=== PATIENT | female | born 1945 | race Caucasian/White ===

== ENCOUNTER 2016-11-12 15:23 | Emergency (ER) | payer MEDICARE, OTHER ==
[~2016-11-12 15:23] MED LIST: AMLO10 PO; ATOR20TA42 PO; GLIP10TA13 PO; GLUCTAB PO; KPHOS250 PO; LANTINJ SC; LEVA250T14 PO; LEVA500T PO; LISI-366 PO; SPIR25TA PO
[2016-11-12 15:25] VITALS: BP 199/100; PULSE 90; RESP 13; TEMP 97.6; O2SAT 95
--- NOTE | 2016-11-12 17:19 | PD ---
HPI Chief Complaint: Musculoskeletal Complaint Time Seen by Provider: 16:20 Travel History International Travel<30 days: No Contact w/Intl Traveler<30days: No Traveled to known affect area: No History of Present Illness HPI 71-year-old female presents emergency department for evaluation of right ankle pain. Patient reports she's history distress fracture in the fibula diagnosed last year. Over the last 24 hours she has had increasing pain in the ankle worse with weightbearing. Similar to the pain with her previous stress fracture. She denies numbness/tingling/weakness a 70. She has full range of motion of the ankle. Pain is constant, nonradiating, throbbing. Severity 4/10. PFSH Past Medical History Blood Disorders: No Cancer: No Cardiovascular Problems: Yes High Cholesterol: Yes Diabetes: Yes Endocrine: Yes Genitourinary: Yes (PROTEIN IN URINE.) Hypertension: Yes Immune Disorder: No Musculoskeletal: No Neurologic: No Psychiatric: No Reproductive: No Respiratory: No Menopausal: Yes Tubal Ligation: Yes Past Surgical History Abdominal Surgery: Yes (GALL BLADDER) Body Medical Devices: SCREWS IN LEFT ANKLE Cholecystectomy: Yes Eye Surgery: Yes (CATARACT) Gynecologic Surgery: Yes (TUBAL LIGATION) Social History Alcohol Use: No Tobacco Use: No Substance Use: No Allergies-Medications (Allergen,Severity, Reaction): Coded Allergies: morphine (Verified Allergy, Severe, VOMITING, 11/12/16) Reported Meds & Prescriptions Reported Meds & Active Scripts Active Reported Levaquin (Levofloxacin) 250 Mg Tab 250 Mg PO DAILY 9 Days Levaquin 500 Mg Tab (Levofloxacin) 500 Mg Tab 500 Mg PO DAILY 1 Days Kphos Neutral 250 Mg Tab (Potassium Phos/Sodium Phos) 250 Mg Tab 250 Mg PO Q8 2 Days Lantus For Opticlik (Insulin Glargine) Inj 10 Units SC DAILY@1600 Lisinopril 40 Mg Tab 40 Mg PO DAILY Glipizide Er (Glipizide) 10 Mg Tab 10 Mg PO BID Spironolactone 25 Mg Tab 25 Mg PO DAILY START ON 02/06/13 Norvasc (Amlodipine Besylate) 10 Mg Tab 10 Mg PO HS Lipitor (Atorvastatin Calcium) 20 Mg Tab 20 Mg PO DAILY Glucophage (Metformin HCl) 500 Mg Tab 1,500 Mg PO DIRECTED HOLD METFORMIN UNTIL CLEARED BY YOUR PCP Metformin Hcl (Metformin HCl) 500 Mg Tab 1,000 Mg PO DAILY Review of Systems Except as stated in HPI: all other systems reviewed are Neg Physical Exam Narrative GENERAL: Well-nourished, well-developed patient. SKIN: Focused skin assessment warm/dry. HEAD: Normocephalic. CARDIOVASCULAR: Regular rate and rhythm without murmurs, gallops, clicks or rubs. RESPIRATORY: Clear to auscultation. Breath sounds equal bilaterally. No wheezes , rales, or rhonchi heard. MUSCULOSKELETAL: No cyanosis. Right lower extremity: Notable swelling and mild tenderness to the anterior lateral aspect of the ankle. The joint is stable. Full range of motion. 2+ distal pulses. Normal sensation. Brisk cap refill. BACK: Nontender without obvious deformity. No CVA tenderness. Data Data Last Documented VS Vital Signs Date Time Temp Pulse Resp B/P (MAP) Pulse Ox O2 Delivery O2 Flow Rate FiO2 11/12/16 15:25 97.6 90 13 199/100 (133) 95 Orders Orders Ankle, Complete ([id number]) (11/12/16 ) [facility] Medical Decision Making Medical Screen Exam Complete: Yes Emergency Medical Condition: Yes Differential Diagnosis Ankle sprain versus ankle fracture versus arthralgia Narrative Course 71-year-old female with chief complaint of right ankle pain. History of wrist fracture in the right fibula diagnosed last year. Patient denies any acute injury. Reports pain is similar to previous strokes fracture. Extremities neurovascular intact. X-ray pending X-ray of the right ankle: No acute fracture Fabian wrap applied to the right lower extremity. Neurovascularly intact. Patient instructed to ice and elevate the extremity decrease weightbearing for several days and follow-up with orthopedic. Diagnosis Primary Impression: Ankle pain Qualified Codes: M25.571 - Pain in right ankle and joints of right foot Referrals: Orthopedist Additional Instructions: Fabian wrap and elevate the right lower extremity. Decreased weightbearing for several days if possible. Take [id number] Motrin and/or Tylenol as needed for pain. Disposition: 01 DISCHARGE HOME Condition: Stable Slime Gaines Nov 12, 2016 17:19
--- NOTE | 2016-11-12 18:14 | RADRPT ---
EXAM DATE/TIME: 11/12/2016 17:56 [facility] COMPARISON: No previous studies available for comparison. INDICATIONS : Right ankle pain post fracture 8 months ago. No known recent trauma. MEDICAL HISTORY : Right ankle fracture SURGICAL HISTORY : None. ENCOUNTER: Initial ACUITY: 7 - 11 months PAIN SCORE: 8/10 LOCATION: Right lateral and posterior ankle FINDINGS: The examination demonstrates extensive soft tissue swelling. There is punctate calcification within t he soft tissues suggesting chronic venous stasis. There is an old, healed fracture involving the distal fibula and tibia. There is diffusely thickened periosteum and a moderate amount of heterotopic bone. There is a fracture line which is faintly visib le through the tibia. This appears old. CONCLUSION: 1. Old, mostly healed fractures of the distal tibia and fibula. 2. Probable chronic venous stasis. Shant Wang MD on November 12, 2016 at 18:11 Board Certified Radiologist. This report was verified electronically.
== END 2016-11-12 18:35 | disposition home or self-care (01) ==
LOC: NEPK 15:23
DX: M25.571 Pain in right ankle and joints of right foot (principal); E78.00 Pure hypercholesterolemia, unspecified; E11.9 Type 2 diabetes mellitus without complications; I10 Essential (primary) hypertension; Z79.899 Other long term (current) drug therapy; Z88.5 Allergy status to narcotic agent
CPT/HCPCS: 73610; 99283